=== PATIENT | female | born 1965 | race African-American/Black ===

== ENCOUNTER 2016-03-09 12:34 | Observation (INO) | payer SELFPAY ==
--- NOTE | 2016-03-09 12:53 | ER Document Report ---
ED Medical Screen (RME) - General Chief Complaint: Chest Pain > 30 Stated Complaint: CHEST PAIN Notes: This is a 50-year-old female presents emergency Department with tearing back pain which radiates to the front of her abdomen, onset was last evening. Also admits to dull constant ache in her chest. Patient is a history of cardiac disease htn, abdominal pain I have greeted and performed a rapid initial assessment of this patient. A comprehensive ED assessment and evaluation of the patient, analysis of test results and completion of the medical decision making process will be conducted by additional ED providers. TRAVEL OUTSIDE OF THE [place] IN LAST 30 DAYS: No - Related Data Allergies/Adverse Reactions: NSAIDS (Non-Steroidal Anti-Inflamma [Nsaids] Allergy (Intermediate, Verified 12:48) Hives aspirin [Aspirin] Allergy (Unknown, Verified 03/09/16 12:48) Past Medical History - Past Medical History Cardiac Medical History: Reports: Hx Hypertension Denies: Hx Heart Murmur Pulmonary Medical History: Denies: Hx Tuberculosis Musculoskeltal Medical History: Reports Hx Arthritis - RA Past Surgical History: Reports: Hx Vascular Surgery - Immunizations Hx Diphtheria, Pertussis, Tetanus Vaccination: Yes - 2006
[2016-03-09] MEDS ORDERED: NORMAL SALINE 1000 ML 1,000 ML IV PRN ×2 (13:29→20:32)
[2016-03-09] MEDS ORDERED: ONDANSETRON HCL INJ/PF 4 MG/2 ML SDV IV ONE (13:30)
[2016-03-09] MEDS ORDERED: HYDROMORPHONE HCL INJ/PF 2 MG/ML AMPULE IV ONE ×3 (13:30→20:32)
[2016-03-09 13:33] LABS: ABSOLUTE BASOPHILS # (AUTO) 0.1 10^3/uL (0.0-0.2); ABSOLUTE LYMPHOCYTES (AUTO) 1.6 10^3/uL (0.5-4.7); ABSOLUTE MONOCYTES (AUTO) 0.9 10^3/uL (0.1-1.4); ABSOLUTE NEUT (AUTO) 12.2 10^3/uL (1.7-8.2); BASOPHILS % (AUTO) 0.5 % (0-2); EOSINOPHILS % (AUTO) 0.1 % (0-6); HEMATOCRIT 40.4 % (36.0-47.0); HGB HCT DIFFERENCE -1.4; LYMPHOCYTES % (AUTO) 10.7 % (13-45); MEAN CORPUSCULAR HEMOGLOBIN 28.7 pg (27.0-33.4); MEAN CORPUSCULAR HGB CONC 32.3 g/dL (32.0-36.0); MEAN CORPUSCULAR VOLUME 89 fl (80-97); MONOCYTES % (AUTO) 5.8 % (3-13); RED BLOOD COUNT 4.55 10^6/uL (3.72-5.28); RED CELL DISTRIBUTION WIDTH 13.3 % (11.5-14.0); SEGMENTED NEUTROPHILS % (AUTO) 82.9 % (42-78); WHITE BLOOD COUNT 14.7 10^3/uL (4.0-10.5)
[2016-03-09 13:36] LABS: PROTHROMBIN TIME 12.8 SEC (11.4-15.4)
[2016-03-09 13:37] LABS: PARTIAL THROMBOPLASTIN TIME 31.6 SEC (23.5-35.8)
[2016-03-09] MEDS ORDERED: LABETALOL HCL INJ 20 MG/4 ML DISP.SYRIN IV ONE ×5 (13:44→20:02)
--- NOTE | 2016-03-09 13:44 | ER Document Report ---
ED General - General Chief Complaint: Abdominal Pain >50 Stated Complaint: CHEST PAIN Time seen by provider: 13:41 Mode of Arrival: Wheelchair Information source: Patient Notes: This is a 50-year-old female with a history of hypertension, peripheral vascular disease (right tibial bypass). Patient presents to the emergency room with lower abdominal pain since last night. Patient's blood pressure medicine was noted to be elevated in triage (202/168) patient did state she took her blood pressure medicines prior to arrival. In the room, blood pressure is 184/ 134. Patient's last period was one year ago. She denies any vaginal bleeding, denies vaginal discharge. The patient denies constipation or diarrhea. TRAVEL OUTSIDE OF THE [place] IN LAST 30 DAYS: No - HPI Onset: Yesterday Onset/Duration: Gradual Quality of pain: Dull Severity: Moderate Pain Level: 2 Associated symptoms: denies: Chills, Nonproductive cough, Productive cough, Fever, Nausea, Shortness of breath Exacerbated by: Denies Relieved by: Denies Similar symptoms previously: No Recently seen / treated by doctor: No - Related Data Allergies/Adverse Reactions: NSAIDS (Non-Steroidal Anti-Inflamma [Nsaids] Allergy (Intermediate, Verified 12:48) Hives aspirin [Aspirin] Allergy (Unknown, Verified 03/09/16 12:48) Past Medical History - General Information source: Patient - Social History Smoking Status: Current Every Day Smoker Cigarette use (# per day): No Chew tobacco use (# tins/day): No Frequency of alcohol use: None Drug Abuse: None Lives with: Family Family History: Reviewed & Not Pertinent Patient has suicidal ideation: No Patient has homicidal ideation: No - Past Medical History Cardiac Medical History: Reports: Hx Hypertension Denies: Hx Heart Murmur Pulmonary Medical History: Denies: Hx Tuberculosis Renal/ Medical History: Denies: Hx Peritoneal Dialysis Musculoskeltal Medical History: Reports Hx Arthritis - RA Past Surgical History: Reports: Hx Vascular Surgery - Immunizations Hx Diphtheria, Pertussis, Tetanus Vaccination: Yes - 2006 Review of Systems - Review of Systems Constitutional: denies: Chills, Fever EENT: No symptoms reported Cardiovascular: See HPI Respiratory: No symptoms reported Gastrointestinal: See HPI Genitourinary: No symptoms reported Female Genitourinary: No symptoms reported Musculoskeletal: No symptoms reported Skin: No symptoms reported Hematologic/Lymphatic: No symptoms reported Neurological/Psychological: No symptoms reported Physical Exam - Vital signs Vitals: Temp Pulse Resp BP Pulse Ox 98.6 F 102 H 22 H 182/113 H 99 03/09/16 12:49 03/09/16 12:49 03/09/16 12:49 03/09/16 12:49 03/09/16 12:49 Notes: Physical exam: GENERAL: 50-year-old female, alert and oriented 3, appears in moderate distress HEAD: Atraumatic, normocephalic. EYES: Pupils equal round and reactive to light, extraocular movements intact, sclera anicteric, conjunctiva are normal. ENT: TMs normal, nares patent, oropharynx clear without exudates. Moist mucous membranes. NECK: Normal range of motion, supple without lymphadenopathy or JVD. LUNGS: Breath sounds clear to auscultation bilaterally and equal. No wheezes rales or rhonchi. HEART: Regular rate and rhythm without murmurs, rubs or gallops. ABDOMEN: Soft, tenderness in the lower quadrants, normoactive bowel sounds. No guarding, no rebound. No masses appreciated. Pelvic exam: External genitalia normal, patient does have a whitish discharge in the vault. There is some tenderness to the uterus. No significant cervical motion tenderness. Specimen sent to lab. EXTREMITIES: Patient does have evidence of left groin vascular surgery and left tibial artery surgery. The pulses to the left foot are good. Patient does have a dopplerable pulse in the right groin. While there is decreased pulses to the right lower extremity, her foot remains warm and the cap refill is good. She does not have any pain to the tenderness of the lower extremity or any pain with range of motion of the right lower extremity. Sensation is normal to the lower extremity. NEUROLOGICAL: Cranial nerves II through XII grossly intact. Normal speech, moving all extremities. PSYCH: Normal mood, normal affect. SKIN: Warm, Dry, normal turgor, no rashes or lesions noted. Course - Re-evaluation Re-evalutation: 03/09/16 19:32 Note: This is a 50-year-old female with a history of poorly controlled hypertension, peripheral vascular disease (left lower extremity). The patient initially presented with lower abdominal discomfort in the setting of uncontrolled hypertension (blood pressure 202/168). On physical exam, the patient did have lower abdominal tenderness, tenderness to the right inguinal area. Her blood pressure was controlled with IV labetalol. She was given some pain medicine. CTA of the chest showed no aortic dilatation or dissection. CT of the abdomen reveals a right common iliac artery that is occluded they note that there is flow to the distal external iliac. CT does not show any disease of the celiac her SMA. On physical exam, The foot is warm. There is some capillary Refill.The patient does have a dopplerable pulse in the right groin. The patient does have a good dorsal pedal pulse on the left side where she has had surgery in the past. 03/09/16 20:03 I discussed case with Dr. Ponce (vascular at [facility]) who is covering for Dr. Florez. Given the presentation, Dr. Ponce does not feel there is an acute vascular emergency. He does recommend that the patient follow up with Dr. Florez Clive his or himself) in their offices. The patient's predominant symptoms with lower abdominal discomfort in the setting of uncontrolled hypertension. On physical exam, she has no sensory loss in the right lower extremity and has no pain with range of motion of the right leg. These findings go against acute arterial ischemia of the right leg. She no doubt has disease and will need some sort of vascular follow-up with one of the doctors above. 03/09/16 20:04 03/09/16 20:07 03/09/16 20:36 - Vital Signs Vital signs: Temp Pulse Resp BP Pulse Ox 98.6 F 102 H 19 160/93 H 100 03/09/16 12:49 03/09/16 12:49 03/09/16 18:31 03/09/16 18:31 03/09/16 18:31 03/09/16 20:36 - Laboratory Result Diagrams: 03/09/16 13:05 03/09/16 13:05 Laboratory results interpreted by me: 03/09/16 13:05 WBC 14.7 H Seg Neutrophils % 82.9 H Lymphocytes % 10.7 L Absolute Neutrophils 12.2 H - Diagnostic Test Radiology reviewed: Image reviewed, Reports reviewed - CT of the chest shows no aortic dissection or dilatation. CT of the abdomen shows a normal appendix without any obvious inflammation. The patient has occlusion of the right iliac artery. There is flow to the distal external iliac . The SMA and celiac access showed no significant disease. - EKG Interpretation by Mi Rate: Normal Rhythm: NSR - EKG shows normal sinus rhythm with a ventricular rate of 93 with evidence of LVH. Critical Care Note - Critical Care Note Total time excluding time spent on procedures (mins): 75 Discharge - Discharge Clinical Impression: hypertensive emergency Condition: Stable Disposition: ADMITTED OBSERVATION Admitting Provider: Hospitalist - Dr. Mueller Unit Admitted: [facility]
[2016-03-09 13:46] LABS: ALANINE AMINOTRANSFERASE 25 U/L (9-52); ALBUMIN 3.9 g/dL (3.5-5.0); ALKALINE PHOSPHATASE 111 U/L (38-126); ANION GAP 12 (5-19); ASPARTATE AMINO TRANSFERASE 14 U/L (14-36); BILIRUBIN,TOTAL 0.8 mg/dL (0.2-1.3); BLOOD UREA NITROGEN 11 mg/dL (7-20); CALCIUM 10.2 mg/dL (8.4-10.2); CARBON DIOXIDE 28 mmol/L (22-30); CHLORIDE 102 mmol/L (98-107); CREATINE KINASE 38 U/L (30-135); CREATININE RESULT 0.87 mg/dL (0.52-1.25); GLUCOSE 94 mg/dL (75-110); LIPASE 36.3 U/L (23-300); POTASSIUM 3.8 mmol/L (3.6-5.0); TOTAL PROTEIN 8.2 g/dL (6.3-8.2)
[2016-03-09 13:59] LABS: CREATINE KINASE MB < 0.22 ng/mL (<4.55); TROPONIN I < 0.012 ng/mL
[2016-03-09 14:55] LABS: APPEARANCE,URINE CLEAR; BILIRUBIN,URINE NEGATIVE (NEGATIVE); GLUCOSE, URINE NEGATIVE (NEGATIVE); KETONES,URINE NEGATIVE (NEGATIVE); LEUKOCYTE ESTERASE,URINE NEGATIVE (NEGATIVE); NITRITE,URINE NEGATIVE (NEGATIVE); PROTEIN,URINE NEGATIVE (NEGATIVE); UROBILINOGEN,URINE NEGATIVE mg/dL (<2.0)
[2016-03-09] MEDS ORDERED: CEFTRIAXONE 1 GM/D5W RTU 50 ML IV ONE (17:38)
[2016-03-09] MEDS ORDERED: NITROGLYCERIN 2% OINTMENT 1 GM PACKET TP ONE (19:33)
[2016-03-09 20:36] LABS: CHLAM PCR NOT DETECTED (NOT DETECT)
[2016-03-09 21:19] LABS: URINE BARBITURATES SCREEN NEGATIVE; URINE METHADONE SCREEN NEGATIVE; URINE OPIATES LOW NEGATIVE; URINE PHENCYCLIDINE SCREEN NEGATIVE
[2016-03-09] MEDS ORDERED: THIAMINE HCL 100 MG TABLET PO ONE (21:58)
[2016-03-09] MEDS ORDERED: PROMETHAZINE HCL INJ 25 MG/1 ML VIAL IV PRN (22:17)
[2016-03-09] MEDS ORDERED: NICOTINE 7 MG/24 HR PATCH.TD24 TD PRN (22:39)
--- NOTE | 2016-03-09 22:39 | PDOC H&P ---
History of Present Illness Admission Date/PCP: No PCP Patient complains of: abd pain, chest pain History of Present Illness: DIMAS GRAHAM is a 50 year old Hungarian female with known underlying difficult to control blood pressure, chronic noncompliance with medications, known peripheral vascular disease, having undergone a left lower extremity bypass, who presents to the emergency room for evaluation of above complaints. Has had intermittent mild to moderate intensity aching lower abdominal pain for the last 24 hours. Nausea but no vomiting. No fever chills, diarrhea or dysuria. Last bowel movement was 24 hours ago. Intermittent occasional chest pain, but the abdominal pain has been a bigger complaint. Has been rather hypertensive since coming to the emergency room, requiring several doses of labetalol. States she should be on 3 different blood pressure medicines, but is only taking a lisinopril hydrochlorothiazide combination. Has been on only this one medication for the past several months Patient has been discussed with emergency room physician who evaluated the patient. . Currently resting quietly, chest pain-free, with only minimal lower abdominal discomfort. Laboratory results are listed in [facility] and are reviewed. X-ray summary results are listed below, with full report(s) reviewed. . EKG reviewed. And compared to a tracing from 02/26/2014. Repeat EKG reviewed. Social history/personal habits: 4 children. Works a "seasonal job" at the [employer]. Quarter pack of cigarettes per day. 3 beers a day. Denies illicit drug use. Allergies/adverse reactions single. Allergies are as listed in chart and are noted and reviewed with patient. Home medications Home medications initially autopopulated into [facility] [employer] may not accurately reflect patient's true medications, dosages, and/or frequencies. Unfortunately, patient uncertain of medications/dosages/frequencies. Order has been entered for staff to contact family, outpatient physician, and/or pharmacy to more accurately determine medications, dosages, and frequencies and to contact physician when that has been accomplished. REVIEW OF SYSTEMS: Constitutional: No fever or chills. Eyes: No current vision complaints. ENT: No swallowing problems or complaints. No hearing problems or complaints. Pulmonary: No current complaints. Cardiovascular: See history and present illness. Gastrointestinal: See history and present illness. Skin: No current complaints, including rashes. Hematologic: Easy bruising. Neurologic: Chronic numbness and tingling of her left foot since her prior vascular bypass. Musculoskeletal: Joint pain from arthritis. Psychiatric: Anxiety depression; denies suicidal or homicidal ideation. Endocrine: No current complaints, including polyuria. Genitourinary: No current complaints, including dysuria. PHYSICAL EXAMINATION: 5 feet 2 inches tall. 58.97 kg. BMI 23.8 kg/m. Blood pressure 179/99. Pulse 82 and regular. 97% saturation on room air. Respirations are 13 and unlabored. Temperature 98.6. Son and [id number] are present, along with toddler grandson. Patient approves. Female emergency room ward maid Hollie is present. Well-nourished well-developed though somewhat chronically ill-appearing - [place] female appearing a bit older than her stated age. Appears to feel a bit under the weather, so to speak. Otherwise, cooperative and in no obvious distress other than perhaps mildly anxious. No agitation. Skin is warm and dry. No grossly obvious evidence of rash in areas of skin examined. No subcutaneous nodules palpated. ENT: Hearing grossly normal to normal conversation. Tongue midline on protrusion pink and slightly tacky. Eyes: No scleral icterus. Pupils equal and reactive to light at 4 mm. [place] conjunctivae. Neck is supple and nontender to gentle active range of motion and palpation. Midline trachea. No palpable thyroid nodule mass enlargement or tenderness. Lymphatic: No palpable cervical or clavicular nodes. Neck and lymphatic exams limited by patient body habitus. Psychiatric: Fair to reasonable insight into acute and chronic medical issues. Oriented to time location and why here. Lungs: Auscultation reveals clear and equal breath sounds bilaterally. No use of accessory respiratory muscles. Cardiovascular: Heart regular rate and rhythm, without gallop murmur or rub. No carotid or abdominal aortic bruits. No ankle or pedal edema. Faintly palpable dorsalis pedis pulses. Abdomen: soft, , slightly distended nontender, other than scant lower abdominal discomfort to palpation, without evidence of guarding or peritoneal signs, with positive bowel sounds. Unable to adequately evaluate abdomen for masses or organomegaly due to distention. Extremities: Feet are warm and dry. No calf tenderness to compression. No grossly obvious visual evidence of calf swelling. Gentle manipulation of lower extremities fails to reveal any obvious evidence of injury or instability to knees hips or ankles. Neurologic: Moves upper extremities grossly normally. Patellar reflexes absent. Absent Babinski. Light touch is intact at feet. Dorsiflexion and plantarflexion of feet 5 / 5 and symmetric. Past Medical History Cardiac Medical History: Reports: Hypertension Denies: Congestive Heart Failure, DVT, Myocardial Infarction, Hyperlipidema, Heart Murmur Pulmonary Medical History: Denies: Asthma, Chronic Obstructive Pulmonary Disease (COPD), Tuberculosis EENT Medical History: Denies: Eyes, Ears, Throat Neurological Medical History: Reports: Ischemic CVA - History of stroke 18 years of age. Denies: Hemorrhagic CVA, Seizures Endocrine Medical History: Denies: Diabetes Mellitus Type 1, Diabetes Mellitus Type 2, Hyperthyroidism, Hypothyroidism Renal/ Medical History: Reports: None GI Medical History: Denies: Cirrhosis, Gastroesophageal Reflux Disease, Hepatitis, Peptic Ulcer Disease Musculoskeltal Medical History: Reports: Arthritis - RA Skin Medical History: Reports: None Denies: Eczema, Psoriasis Psychiatric Medical History: Reports: Alcohol Dependency, Depression, General Anxiety Disorder, Tobacco Dependency Denies: Substance Abuse Hematology: Reports: Other - Easy bruising Infectious Medical History: Denies: Hepatitis B, Hepatitis C Past Surgical History Past Surgical History: Reports: Cardiac Catheterization, Vascular Surgery - Left lower extremity bypass. Denies: Amputation Social History Information Source: Patient, Emergency Med Personnel, [facility] Records Lives with: Family Smoking Status: Current Every Day Smoker Frequency of Alcohol Use: Heavy - 3 beers a day. Hx Recreational Drug Use: No Hx Prescription Drug Abuse: No - Advance Directive Resuscitation Status: Full Code Surrogate healthcare decision maker:: Her children Family History Family History: Reviewed & Not Pertinent Parental Family History Reviewed: Yes Children Family History Reviewed: Yes Sibling(s) Family History Reviewed.: Yes Medication/Allergy Home Medications: RX: Gabapentin 600 mg PO TID PRN 03/09/16 RX: Acetaminophen [Tylenol 325 mg Tablet] 650 mg PO Q4HP PRN tablet 03/11/16 RX: Amlodipine Besylate [Norvasc 10 mg Tablet] 10 mg PO DAILY tablet 03/11/16 RX: Hydrocodone/Acetaminophen [Blakeslee 5-325 mg Tablet] 1 tab PO Q4HP PRN #20 tablet 03/11/16 RX: Lisinopril/Hydrochlorothiazide [Lisinopril-Hctz 20-12.5 mg Tab] 20 mg PO DAILY #30 tablet 03/11/16 Allergies/Adverse Reactions: NSAIDS (Non-Steroidal Anti-Inflamma [Nsaids] Allergy (Intermediate, Verified 04/24 09:52) Hives aspirin [Aspirin] Allergy (Unknown, Verified 03/13/16 09:52) Physical Exam Vital Signs: Temp Pulse Resp BP Pulse Ox 98.6 F 102 H 19 160/93 H 100 03/09/16 12:49 03/09/16 12:49 03/09/16 18:31 03/09/16 18:31 03/09/16 18:31 Intake & Output 03/08/16 03/09/16 03/10/16 00:59 00:59 00:59 Weight 58.967 kg Results Laboratory Results: 03/09/16 13:05 03/09/16 13:05 03/09/16 03/09/16 03/09/16 13:05 13:05 13:05 WBC 14.7 H RBC 4.55 Hgb 13.0 Hct 40.4 MCV 89 MCH 28.7 MCHC 32.3 RDW 13.3 Plt Count 313 Seg Neutrophils % 82.9 H Lymphocytes % 10.7 L Monocytes % 5.8 Eosinophils % 0.1 Basophils % 0.5 Absolute Neutrophils 12.2 H Absolute Lymphocytes 1.6 Absolute Monocytes 0.9 Absolute Eosinophils 0.0 Absolute Basophils 0.1 Sodium 142.0 Potassium 3.8 Chloride 102 Carbon Dioxide 28 Anion Gap 12 BUN 11 Creatinine 0.87 Est GFR ( Amer) > 60 Est GFR (Non-Af Amer) > 60 Glucose 94 Calcium 10.2 Total Bilirubin 0.8 AST 14 ALT 25 Alkaline Phosphatase 111 Total Protein 8.2 Albumin 3.9 Lipase 36.3 Serum HCG, Qual NEGATIVE Urine Color Urine Appearance Urine pH Ur Specific Gary Urine Protein Urine Glucose (UA) Urine Ketones Urine Blood Urine Nitrite Ur Leukocyte Esterase Urine WBC (Auto) Urine RBC (Auto) 03/09/16 14:25 WBC RBC Hgb Hct MCV MCH MCHC RDW Plt Count Seg Neutrophils % Lymphocytes % Monocytes % Eosinophils % Basophils % Absolute Neutrophils Absolute Lymphocytes Absolute Monocytes Absolute Eosinophils Absolute Basophils Sodium Potassium Chloride Carbon Dioxide Anion Gap BUN Creatinine Est GFR ( Amer) Est GFR (Non-Af Amer) Glucose Calcium Total Bilirubin AST ALT Alkaline Phosphatase Total Protein Albumin Lipase Serum HCG, Qual Urine Color YELLOW Urine Appearance CLEAR Urine pH 6.0 Ur Specific Gary 1.010 Urine Protein NEGATIVE Urine Glucose (UA) NEGATIVE Urine Ketones NEGATIVE Urine Blood NEGATIVE Urine Nitrite NEGATIVE Ur Leukocyte Esterase NEGATIVE Urine WBC (Auto) 1 Urine RBC (Auto) 0 03/09/16 03/09/16 13:05 13:05 Creatine Kinase 38 CK-MB (CK-2) < 0.22 Troponin I < 0.012 Impressions: Chest X-Ray 03/09/16 13:30 IMPRESSION: NO SIGNIFICANT RADIOGRAPHIC FINDING IN THE CHEST. Abdomen/Pelvis CT 03/09/16 15:38 IMPRESSION: Largely occluded right common external iliac artery with some flow evident in the distal common iliac. High-grade stenosis left common iliac. Chest/Abdomen CTA 03/09/16 15:38 IMPRESSION: No evidence of pulmonary emboli. Transvaginal US 03/09/16 17:37 IMPRESSION: MILD TO MODERATE FREE FLUID IN THE POSTERIOR CUL-DE-SAC. ETIOLOGY AND SIGNIFICANCE NOT APPARENT. UNABLE TO VISUALIZE THE OVARIES. NO OTHER SIGNIFICANT FINDINGS. Assessment & Plan - Diagnosis (1) Abnormal EKG Plan: Repeat EKG. (2) Chest pain Qualifiers: Chest pain type: unspecified Qualified Code(s): R07.9 - Chest pain, unspecified Is this a current diagnosis for this admission?: YesPlan: Possibly secondary to elevated blood pressure. Chest pain-free at present. Clinical suspicion for acute coronary syndrome is low. However,Patient will be admitted under chest pain protocol. Serial troponin's . Repeat EKG. lipid panel. I have strongly encouraged patient not to get out of bed without notifying staff , to avoid a fall with injury. Knee high SCDs for DVT prophylaxis, along with subcutaneous Lovenox. Impression and plans were discussed with patient, and family, all of whom concur. Time spent in evaluation and management of patient: 74 minutes. (3) Hypertensive urgency Is this a current diagnosis for this admission?: YesPlan: Gradual blood pressure control. Vital sign parameters are on chart.Resume home medications as appropriate once these have been determined and reviewed. (4) Lower abdominal pain Is this a current diagnosis for this admission?: YesPlan: Unlikely serious etiology. Please see emergency room physician notes concerning his discussion with vascular surgeon at [facility]. When necessary pain medication. Clear liquid diet. (5) Alcohol dependency Qualifiers: Substance use status: uncomplicated Qualified Code(s): F10.20 - Alcohol dependence, uncomplicated Is this a current diagnosis for this admission?: YesPlan: No evidence of withdrawal symptoms. Scheduled thiamine, folic acid, and multivitamin. Observe closely for withdrawal symptoms. (6) Noncompliance Is this a current diagnosis for this admission?: Yes (7) Peripheral arterial disease Is this a current diagnosis for this admission?: YesPlan: Please see emergency room physician notes concerning his discussion with vascular surgeon at [facility]. Outpatient follow-up. (8) Tobacco dependency Is this a current diagnosis for this admission?: YesPlan: When necessary nicotine patch. - Inpatient Certification Based on my medical assessment, after consideration of the patient's comorbidities, presenting symptoms, or acuity I expect that the services needed warrant INPATIENT care.: Yes I certify that my determination is in accordance with my understanding of Medicare's requirements for reasonable and necessary INPATIENT services [42 CFR 412.3e].: Yes Medical Necessity: Need Close Monitoring Due to Risk of Patient Decompensation, Need For Continuous Telemetry Monitoring, Need for Pain Control, Risk of Complication if Not Cared For in Hospital Post Hospital Care: D/C or Transfer Summary
--- NOTE | 2016-03-10 00:03 | EKG REPORT ---
SEVERITY:- ABNORMAL ECG - SINUS RHYTHM PROBABLE LEFT ATRIAL ABNORMALITY LEFT VENTRICULAR HYPERTROPHY ANTERIOR INFARCT, AGE INDETERMINATE : Confirmed by: Dede Danielle 10-Mar-2016 00:02:51
[2016-03-10] MEDS: ACETAMINOPHEN 325 MG TABLET PO PRN ×2 (03:25→19:41)
[2016-03-10] MEDS: LANSOPRAZOLE 30 MG TAB.RAP.DR PO SCH ×2 (05:26→17:42)
[2016-03-10 05:34] LABS: ABSOLUTE BASOPHILS # (AUTO) 0.1 10^3/uL (0.0-0.2); ABSOLUTE LYMPHOCYTES (AUTO) 1.5 10^3/uL (0.5-4.7); ABSOLUTE NEUT (AUTO) 11.2 10^3/uL (1.7-8.2); BASOPHILS % (AUTO) 0.8 % (0-2); EOSINOPHILS % (AUTO) 0.2 % (0-6); HEMATOCRIT 33.5 % (36.0-47.0); HGB HCT DIFFERENCE -1.4; LYMPHOCYTES % (AUTO) 10.9 % (13-45); MEAN CORPUSCULAR HEMOGLOBIN 28.4 pg (27.0-33.4); MEAN CORPUSCULAR VOLUME 89 fl (80-97); MONOCYTES % (AUTO) 7.2 % (3-13); RED BLOOD COUNT 3.77 10^6/uL (3.72-5.28); RED CELL DISTRIBUTION WIDTH 13.3 % (11.5-14.0); SEGMENTED NEUTROPHILS % (AUTO) 80.9 % (42-78); WHITE BLOOD COUNT 13.8 10^3/uL (4.0-10.5)
[2016-03-10 05:37] LABS: HEMOGLOBIN 10.7 g/dL (12.0-15.5)
[2016-03-10 05:41] LABS: CHOLESTEROL 171.91 mg/dL (0-200); Direct HDL 49 mg/dL (>40); TRIGLYCERIDES 128 mg/dL (<150)
[2016-03-10 05:52] LABS: DIRECT LDL 79 mg/dL (<100)
[2016-03-10] MEDS: FOLIC ACID 1 MG TABLET PO SCH (09:53)
[2016-03-10] MEDS: MULTIVITAMIN TABLET PO SCH (09:53)
[2016-03-10] MEDS: LISINOPRIL 10 MG TABLET PO SCH (09:54)
[2016-03-10] MEDS: HYDROCHLOROTHIAZIDE 25 MG TABLET PO SCH (09:55)
[2016-03-10] MEDS: ENOXAPARIN SODIUM INJ 40 MG/0.4 ML DISP.SYRIN SUBCUT SCH (09:55)
[2016-03-10] MEDS: THIAMINE HCL 100 MG TABLET PO SCH (09:55)
[2016-03-10] MEDS: AMLODIPINE BESYLATE 10 MG TABLET PO SCH (09:57)
[2016-03-10] MEDS: HYDROCODONE/ACETAMINOPHEN 5-325 MG TABLET PO PRN ×3 (10:02→22:18)
--- NOTE | 2016-03-10 10:59 | EKG REPORT ---
SEVERITY:- ABNORMAL ECG - SINUS RHYTHM PROBABLE LEFT ATRIAL ABNORMALITY ANTERIOR INFARCT, AGE INDETERMINATE : Confirmed by: Dede Danielle 10-Mar-2016 10:58:54
--- NOTE | 2016-03-10 11:00 | EKG REPORT ---
SEVERITY:- ABNORMAL ECG - SINUS RHYTHM PROBABLE LEFT ATRIAL ABNORMALITY LVH WITH SECONDARY REPOLARIZATION ABNORMALITY ANTERIOR INFARCT, AGE INDETERMINATE : Confirmed by: Dede Danielle 10-Mar-2016 10:59:05
[2016-03-10] MEDS: GABAPENTIN 300 MG CAPSULE PO SCH ×2 (14:10→22:19)
[2016-03-10] MEDS ORDERED: INFLUENZA ADLT QUAD (36MOS+) 2016-17 VAC 0.5 ML SYR IM PRN (14:23)
--- NOTE | 2016-03-10 15:30 | PDOC PROGRESS REPORT ---
Subjective Progress Note for:: 03/10/16 Subjective:: Patient seen on morning rounds. She is presently resting in bed. She states she is hungry and complaining of pain in right foot. She does have history of PVD. She did have CTA of abdomen and pelvis with results discussed with her vascular surgeon last evening by ED MD. They feel she will need outpatient follow up. This is not an acute finding. She denies chest pain, shortness of breath or dyspnea. She denies nausea, vomiting or abdominal pain. Physical Exam Vital Signs: Temp Pulse Resp BP Pulse Ox 98.6 F 67 12 131/67 H 97 03/10/16 11:34 03/10/16 11:34 03/10/16 11:34 03/10/16 11:34 03/10/16 11:34 Intake & Output 03/09/16 03/10/16 03/11/16 06:59 06:59 06:59 Intake Total 185 355 Balance 185 355 General appearance: PRESENT: no acute distress, well-developed, well-nourished Head exam: PRESENT: atraumatic, normocephalic Eye exam: PRESENT: conjunctiva pink, EOMI, PERRLA. ABSENT: scleral icterus Ear exam: PRESENT: normal external ear exam Mouth exam: PRESENT: moist, tongue midline Neck exam: ABSENT: carotid bruit, JVD, lymphadenopathy, thyromegaly Respiratory exam: PRESENT: clear to auscultation alka. ABSENT: rales, rhonchi, wheezes Cardiovascular exam: PRESENT: RRR. ABSENT: diastolic murmur, rubs, systolic murmur Pulses: PRESENT: normal dorsalis pedis pul Vascular exam: PRESENT: normal capillary refill GI/Abdominal exam: PRESENT: normal bowel sounds, soft. ABSENT: distended, guarding, mass, organolmegaly, rebound, tenderness Rectal exam: PRESENT: deferred Extremities exam: PRESENT: calf tenderness - right lower extremity Musculoskeletal exam: PRESENT: ambulatory, full ROM, normal inspection, tenderness - right foot, foot is warm to the touch with good capillary refill Neurological exam: PRESENT: alert, awake, oriented to person, oriented to place , oriented to time, oriented to situation, CN II-XII grossly intact. ABSENT: motor sensory deficit Skin exam: PRESENT: dry, intact, warm. ABSENT: cyanosis, rash Results Laboratory Results: 03/10/16 05:08 03/09/16 03/10/16 03/10/16 22:50 05:08 05:08 WBC 13.8 H RBC 3.77 Hgb 10.7 L D Hct 33.5 L MCV 89 MCH 28.4 MCHC 32.0 RDW 13.3 Plt Count 237 Seg Neutrophils % 80.9 H Lymphocytes % 10.9 L Monocytes % 7.2 Eosinophils % 0.2 Basophils % 0.8 Absolute Neutrophils 11.2 H Absolute Lymphocytes 1.5 Absolute Monocytes 1.0 Absolute Eosinophils 0.0 Absolute Basophils 0.1 Magnesium 1.7 Triglycerides 128 Cholesterol 171.91 LDL Cholesterol Direct 79 VLDL Cholesterol 26.0 HDL Cholesterol 49 03/09/16 03/10/16 22:50 05:08 Troponin I 0.016 0.013 Impressions: Chest X-Ray 03/09/16 13:30 IMPRESSION: NO SIGNIFICANT RADIOGRAPHIC FINDING IN THE CHEST. Abdomen/Pelvis CT 03/09/16 15:38 IMPRESSION: Largely occluded right common external iliac artery with some flow evident in the distal common iliac. High-grade stenosis left common iliac. Chest/Abdomen CTA 03/09/16 15:38 IMPRESSION: No evidence of pulmonary emboli. Transvaginal US 03/09/16 17:37 IMPRESSION: MILD TO MODERATE FREE FLUID IN THE POSTERIOR CUL-DE-SAC. ETIOLOGY AND SIGNIFICANCE NOT APPARENT. UNABLE TO VISUALIZE THE OVARIES. NO OTHER SIGNIFICANT FINDINGS. Assessment & Plan - Diagnosis (1) Chest pain Qualifiers: Chest pain type: unspecified Qualified Code(s): R07.9 - Chest pain, unspecified Is this a current diagnosis for this admission?: YesPlan: Serial troponins have been negative (2) Hypertensive urgency Is this a current diagnosis for this admission?: YesPlan: Improved on current medications. History of noncompliance with current medications (3) Peripheral arterial disease Is this a current diagnosis for this admission?: YesPlan: Patient has known PAD (4) Foot pain, right Is this a current diagnosis for this admission?: YesPlan: Patient with known PAD, foot is warm with positive pulses. Discussed with her vascular surgeon in [place] last evening. They will follow post discharge. Restart Gabapentin and hydrocodone (5) Noncompliance Is this a current diagnosis for this admission?: YesPlan: Patient has been counseled (6) Tobacco dependency Is this a current diagnosis for this admission?: YesPlan: Counseled on need to quit (7) Alcohol dependency Qualifiers: Substance use status: uncomplicated Qualified Code(s): F10.20 - Alcohol dependence, uncomplicated Is this a current diagnosis for this admission?: Yes - Time Time Spent with patient: 25-34 minutes Critical Time spent with patient: 25-34 minutes Smoking Cessation Education: 3 to 10 minutes Medications reviewed and adjusted accordingly: Yes Anticipated discharge: Home
[2016-03-11] MEDS: GABAPENTIN 300 MG CAPSULE PO SCH (05:46)
[2016-03-11] MEDS: HYDROCODONE/ACETAMINOPHEN 5-325 MG TABLET PO PRN (05:46)
[2016-03-11] MEDS: LANSOPRAZOLE 30 MG TAB.RAP.DR PO SCH (05:46)
[2016-03-11] MEDS: ENOXAPARIN SODIUM INJ 40 MG/0.4 ML DISP.SYRIN SUBCUT SCH (10:26)
[2016-03-11] MEDS: MULTIVITAMIN TABLET PO SCH (10:27)
[2016-03-11] MEDS: LISINOPRIL 10 MG TABLET PO SCH (10:27)
[2016-03-11] MEDS: AMLODIPINE BESYLATE 10 MG TABLET PO SCH (10:27)
[2016-03-11] MEDS: FOLIC ACID 1 MG TABLET PO SCH (10:27)
[2016-03-11] MEDS: HYDROCHLOROTHIAZIDE 25 MG TABLET PO SCH (10:28)
[2016-03-11] MEDS: THIAMINE HCL 100 MG TABLET PO SCH (10:28)
[2016-03-11 11:42] VITALS: BP 141/82
--- NOTE | 2016-03-13 11:20 | PDOC DISCHARGE SUMMARY ---
General - Admit/Disc Date/PCP Admission Date/Primary Care Provider: 03/09/16 22:01 Discharge Date: 03/11/16 - Discharge Diagnosis (1) Chest pain Is this a current diagnosis for this admission?: YesSummary: Ruled out for acute coronary syndrome, most likely GERD related (2) Hypertensive urgency Is this a current diagnosis for this admission?: YesSummary: Patient had not been taking any of her antihypertensives (3) Peripheral arterial disease Is this a current diagnosis for this admission?: YesSummary: Patient has a history of PAD, noncompliance with medical therapy, continued tobacco abuse. She has had bypass surgery to left leg. She will follow up regarding right lower extremity PAD with her vascular surgeon Dr Florez in [place] (4) Foot pain, right Is this a current diagnosis for this admission?: YesSummary: Short term vicodin, continue gabapentin (5) Noncompliance Is this a current diagnosis for this admission?: YesSummary: Counseled (6) Tobacco dependency Is this a current diagnosis for this admission?: YesSummary: Counseled (7) Alcohol dependency Is this a current diagnosis for this admission?: YesSummary: Counseled - Additional Information Resuscitation Status: Full Code Discharge Activity: Activity As Tolerated, Balance Activity w/Rest Home Medications: Gabapentin 600 mg PO TID PRN 03/09/16 Acetaminophen [Tylenol 325 mg Tablet] 650 mg PO Q4HP PRN tablet 03/11/16 Amlodipine Besylate [Norvasc 10 mg Tablet] 10 mg PO DAILY tablet 03/11/16 Hydrocodone/Acetaminophen [Coram 5-325 mg Tablet] 1 tab PO Q4HP PRN #20 tablet 03/11/16 Lisinopril/Hydrochlorothiazide [Lisinopril-Hctz 20-12.5 mg Tab] 20 mg PO DAILY # 30 tablet 03/11/16 History of Present Illness Patient complains of: Chest pain, abdominal pain and right foot pain History of Present Illness: DIMAS GRAHAM is a 50 year old female who presented on 03/09/2016 to [facility]'s ED with complaint of chest pain, abdominal pain and right foot pain. Patient complained of worsening right foot pain. She has history of chronic PAD and has been noncompliant with medical management and has also continued to smoke. She had CTA of the chest, abdomen and pelvis. Which showed chronic changes of her known PAD. She Physical Exam Vital Signs: Temp Pulse Resp BP Pulse Ox 98.5 F 81 17 141/82 H 96 03/11/16 11:43 03/11/16 11:43 03/11/16 11:43 03/11/16 11:27 03/11/16 11:43 Intake & Output 03/10/16 03/11/16 03/12/16 06:59 06:59 06:59 Intake Total 185 1661 322 Balance 185 1661 322 Weight 61.5 kg Results Laboratory Results: 03/10/16 05:08 03/09/16 03/10/16 22:50 05:08 Troponin I 0.016 0.013 Impressions: Chest X-Ray 03/09/16 13:30 IMPRESSION: NO SIGNIFICANT RADIOGRAPHIC FINDING IN THE CHEST. Abdomen/Pelvis CT 03/09/16 15:38 IMPRESSION: Largely occluded right common external iliac artery with some flow evident in the distal common iliac. High-grade stenosis left common iliac. Chest/Abdomen CTA 03/09/16 15:38 IMPRESSION: No evidence of pulmonary emboli. Transvaginal US 03/09/16 17:37 IMPRESSION: MILD TO MODERATE FREE FLUID IN THE POSTERIOR CUL-DE-SAC. ETIOLOGY AND SIGNIFICANCE NOT APPARENT. UNABLE TO VISUALIZE THE OVARIES. NO OTHER SIGNIFICANT FINDINGS.
== END 2016-03-11 14:04 | disposition home or self-care (01) ==
LOC: ER 12:34 → EH 22:01 → UNDOADMOB 22:08 → EH 22:08 → 3S 23:58
DX: R07.9 Chest pain, unspecified (principal); I16.0 Hypertensive urgency; I10 Essential (primary) hypertension; I73.9 Peripheral vascular disease, unspecified; Z91.14 Patient's other noncompliance with medication regimen; Z72.0 Tobacco use; M79.671 Pain in right foot; F10.20 Alcohol dependence, uncomplicated; Z86.73 Personal history of transient ischemic attack (TIA), and cerebral infarction without residual deficits; M06.9 Rheumatoid arthritis, unspecified; F41.8 Other specified anxiety disorders
CPT/HCPCS: 93005 ×2; 96376; 99291; 99292; 96361; 96375; 96365; 36415 ×2; 87040; 82553; 87210; 82550; 83690; 83735; 84703; 85025 ×2; 85610; 85730; 80053; 81001; 84484 ×2; 80307; 87491; 87591; 80061; 71010; 76830; 93976; 71275; 74177; 93010; G0378 ×3; J3490 ×3; J1650 ×2; J1170; J2405; J7030; J0696

== ENCOUNTER 2016-03-13 09:43 | Emergency (ER) | payer SELFPAY ==
--- NOTE | 2016-03-13 11:06 | ER Document Report ---
ED Extremity Problem, Lower - General Mode of Arrival: Ambulatory Information source: Patient TRAVEL OUTSIDE OF THE [place] IN LAST 30 DAYS: No - HPI Patient complains to provider of: Pain Location: Leg Associated symptoms: Other - See above <DANNIE EASTON - Last Filed: 03/13/16 11:29> <PADMAJA SALAS - Last Filed: 03/13/16 13:06> - General Chief Complaint: Leg Pain Stated Complaint: LEG PAIN Notes: Patient is a 50 year old female, with a past medical history including HTN, RA, and peripheral vascular disease, who presents to the emergency department complaining of right leg pain. Patient was admitted to this facility on 03/09 for abdominal pain and discharged on 03/11, patient was found to have a blockage of her right iliac artery but there was still flow to her right distal iliac, she was sent home with no anti platelet drugs and told to follow up with a vascular surgeon. Patient reports that her leg pain worsened last night and is mostly located on the outside of her leg and around her right knee, patient denies any strenuous activity. Patient reports that she had vascular surgery performed, likely an aortofemoral bypass based on the patients recount, on by Dr. Florez. (DANNIE EASTON) - Related Data Allergies/Adverse Reactions: NSAIDS (Non-Steroidal Anti-Inflamma [Nsaids] Allergy (Intermediate, Verified 04/24 09:52) Hives aspirin [Aspirin] Allergy (Unknown, Verified 03/13/16 09:52) Past Medical History - General Information source: Patient - Social History Smoking Status: Former Smoker - 1 week Chew tobacco use (# tins/day): No Frequency of alcohol use: None Drug Abuse: None Family History: Reviewed & Not Pertinent Patient has suicidal ideation: No Patient has homicidal ideation: No - Past Medical History Cardiac Medical History: Reports: Hx Hypertension, Hx Peripheral Vascular Disease Musculoskeltal Medical History: Reports Hx Arthritis - RA Psychiatric Medical History: Reports: Hx Depression Past Surgical History: Reports: Hx Cardiac Catheterization, Hx Cardiac Surgery, Hx Vascular Surgery - Left lower extremity bypass. - Immunizations Hx Diphtheria, Pertussis, Tetanus Vaccination: Yes - 2006 <DANNIE EASTON - Last Filed: 03/13/16 11:29> Review of Systems - Review of Systems Constitutional: No symptoms reported EENT: No symptoms reported Cardiovascular: No symptoms reported Respiratory: No symptoms reported Gastrointestinal: No symptoms reported Genitourinary: No symptoms reported Female Genitourinary: No symptoms reported Musculoskeletal: See HPI, Other - right leg pain Skin: No symptoms reported Hematologic/Lymphatic: No symptoms reported Neurological/Psychological: No symptoms reported -: Yes All other systems reviewed and negative <DANNIE EASTON - Last Filed: 03/13/16 11:29> Physical Exam - Vital signs Interpretation: Normal - General General appearance: Appears well, Alert - HEENT Head: Normocephalic, Atraumatic - Respiratory Respiratory status: No respiratory distress Chest status: Nontender Breath sounds: Normal Chest palpation: Normal - Cardiovascular Rhythm: Regular Heart sounds: Normal auscultation Murmur: No - Extremities General upper extremity: Normal inspection, Normal ROM, Normal strength General lower extremity: Other - No tenderness of right lower leg or right knee. Delayed capilary refill on right toes. Skin temperature normal in right leg and right knee. - Neurological Neuro grossly intact: Yes Cognition: Normal Orientation: AAOx4 [place] Coma Scale Eye Opening: Spontaneous [place] Coma Scale Verbal: Oriented [place] Coma Scale Motor: Obeys Commands [place] Coma Scale Total: 15 Speech: Normal - Psychological Associated symptoms: Normal affect, Normal mood - Skin Skin Temperature: Warm Skin Moisture: Dry Skin Color: Normal <DANNIE EASTON - Last Filed: 03/13/16 11:29> Course - Laboratory Result Diagrams: 03/13/16 12:47 03/13/16 12:47 - Diagnostic Test Radiology reviewed: Reports reviewed - Arterial Doppler shows critical ischemic flow to the right foot. There is monophasic inflow noted. The right femoral artery shows proximal occlusion with distal reconstitution, the right anterior tibial artery is occluded this to leave so there is no flow through the dorsalis pedis. The peroneal and posterior tibial arteries show only critical flow. - Consults Dr. Payton Time consulted: 12:55 Consulted provider: other - Will accept at [facility] as ER to ER transfer. <PADMAJA SALAS - Last Filed: 03/13/16 13:06> - Vital Signs Vital signs: Temp Pulse Resp BP Pulse Ox 97.6 F 85 16 158/89 H 100 03/13/16 09:52 03/13/16 09:52 03/13/16 09:52 03/13/16 09:52 03/13/16 09:52 (DANNIE EASTON) (PADMAJA SALAS) - Laboratory Laboratory results interpreted by me: 03/13/16 12:47 Hgb 11.1 L Hct 33.4 L Critical Care Note - Critical Care Note Total time excluding time spent on procedures (mins): 30 <PADMAJA SALAS - Last Filed: 03/13/16 13:06> Discharge <DANNIE EASTON - Last Filed: 03/13/16 11:29> <PADMAJA SALAS - Last Filed: 03/13/16 13:06> - Discharge Clinical Impression: Ischemic foot Condition: Stable Disposition: [facility] Scribe Attestation: 03/13/16 13:06 I personally performed the services described in the documentation, reviewed and edited the documentation which was dictated to the scribe in my presence, and it accurately records my words and actions. (PADMAJA SALAS) Scribe Documentation - Scribe Written by Wenceslao:: wenceslao Winters, 03/13/16, 1128 acting as scribe for :: Wilber <DANNIE EASTON - Last Filed: 03/13/16 11:29>
[2016-03-13] MEDS ORDERED: HEPARIN SOD (PORCINE) 1,000 UNIT/ML 10 ML VIAL IV PRN (12:20)
[2016-03-13] MEDS ORDERED: HEPARIN SOD (PORCINE) 1,000 UNIT/ML 10 ML VIAL IV ONE (12:20)
[2016-03-13] MEDS ORDERED: HEPARIN SODIUM,PORCINE/D5W 250 ML IV PRN (12:20)
[2016-03-13 13:03] LABS: ABSOLUTE EOSINOPHILS # (AUTO) 0.1 10^3/uL (0.0-0.6); ABSOLUTE LYMPHOCYTES (AUTO) 1.2 10^3/uL (0.5-4.7); ABSOLUTE MONOCYTES (AUTO) 0.6 10^3/uL (0.1-1.4); ABSOLUTE NEUT (AUTO) 5.7 10^3/uL (1.7-8.2); BASOPHILS % (AUTO) 0.5 % (0-2); EOSINOPHILS % (AUTO) 1.3 % (0-6); HEMATOCRIT 33.4 % (36.0-47.0); HEMOGLOBIN 11.1 g/dL (12.0-15.5); HGB HCT DIFFERENCE -0.1; LYMPHOCYTES % (AUTO) 15.4 % (13-45); MEAN CORPUSCULAR HEMOGLOBIN 29.6 pg (27.0-33.4); MEAN CORPUSCULAR HGB CONC 33.3 g/dL (32.0-36.0); MEAN CORPUSCULAR VOLUME 89 fl (80-97); MONOCYTES % (AUTO) 8.1 % (3-13); RED BLOOD COUNT 3.76 10^6/uL (3.72-5.28); RED CELL DISTRIBUTION WIDTH 13.2 % (11.5-14.0); SEGMENTED NEUTROPHILS % (AUTO) 74.7 % (42-78); WHITE BLOOD COUNT 7.6 10^3/uL (4.0-10.5)
[2016-03-13 13:07] LABS: APPEARANCE,URINE SLIGHTLY-CLOUDY; BILIRUBIN,URINE NEGATIVE (NEGATIVE); GLUCOSE, URINE NEGATIVE (NEGATIVE); KETONES,URINE NEGATIVE (NEGATIVE); LEUKOCYTE ESTERASE,URINE SMALL (NEGATIVE); NITRITE,URINE NEGATIVE (NEGATIVE); PROTEIN,URINE NEGATIVE (NEGATIVE); URINE SPECIFIC GRAVITY 1.015; UROBILINOGEN,URINE NEGATIVE mg/dL (<2.0)
[2016-03-13 13:10] LABS: PROTHROMBIN TIME 12.5 SEC (11.4-15.4)
[2016-03-13 13:11] LABS: PARTIAL THROMBOPLASTIN TIME 32.9 SEC (23.5-35.8)
[2016-03-13 13:33] LABS: ALANINE AMINOTRANSFERASE 26 U/L (9-52); ALBUMIN 4.1 g/dL (3.5-5.0); ALKALINE PHOSPHATASE 99 U/L (38-126); ANION GAP 12 (5-19); ASPARTATE AMINO TRANSFERASE 18 U/L (14-36); BILIRUBIN,TOTAL 0.3 mg/dL (0.2-1.3); BLOOD UREA NITROGEN 19 mg/dL (7-20); CALCIUM 9.7 mg/dL (8.4-10.2); CARBON DIOXIDE 33 mmol/L (22-30); CHLORIDE 98 mmol/L (98-107); CREATININE RESULT 0.76 mg/dL (0.52-1.25); GLUCOSE 98 mg/dL (75-110); POTASSIUM 3.8 mmol/L (3.6-5.0); SODIUM 142.5 mmol/L (137-145); TOTAL PROTEIN 7.6 g/dL (6.3-8.2)
[2016-03-13 13:55] VITALS: BP 138/83
--- NOTE | 2016-03-13 16:07 | XCELERA REPORT ---
[address] [address] Lower Extremity Arterial Evaluation Name: DIMAS GRAHAM Age: 50 yrs Gender: Female : 1965 Patient Status: Emergency Patient Location: ER Study Date: 03/13/2016 11:37 AM Procedure: A color flow and duplex scan of the lower extremity arteries was performed on the right with velocity and waveform analysis. Reason For Study: RIGHT LEG-INCREASED PAIN-OCCLUDER COMMON ILIAC Ordering Physician: PADMAJA SALAS Performed By: Carlitos Nava Measurements and Calculations Right Left CLERICAL SPECIALIST PSV 45.4 cm/sec Prox PFA PSV -13.6 cm/sec Prox SFA PSV 26.0 cm/sec Prox Pop A PSV 19.9 cm/sec Mid GINETTE PSV 13.4 cm/sec Dist PORTFOLIO MANAGER PSV 6.1 cm/sec Dist Michael A PSV 5.7 cm/sec Moe Pedis PSV 93.0 cm/sec Right Side Arterial Evaluation Abnormal velocity, monophasic flow present, from the Common Femoral artery down to the infrageniculate vessels. narrowed lumen in the CLERICAL SPECIALIST on color flow. Trickle flow in the Tibials. The ankle-brachial index was not done. 50-99% stenosis is noted at the inflow. With severe sequential disease. Left Side Arterial Evaluation Normal triphasic waveform in the Dorsalis Pedis artery. Critical Findings Discussed with Dr Salas at about 1300. Interpretation Summary Severe hemodynamically significant lesions in the right lower extremity only, on duplex imaging, at rest. Potentially limb threatening ischemia on the right. Probably normal flow on the left. : PADMAJA SALAS > Yassine Tomlinson
== END 2016-03-13 13:50 | disposition short-term general hospital (02) ==
LOC: ER 09:43
DX: I99.8 Other disorder of circulatory system (principal); M79.604 Pain in right leg; R10.9 Unspecified abdominal pain; I10 Essential (primary) hypertension; M06.9 Rheumatoid arthritis, unspecified; Z87.891 Personal history of nicotine dependence
CPT/HCPCS: 36415; 83605; 85025; 85610; 85730; 80053; 81001; 93926 ×2; J1644 ×2

== ENCOUNTER → 2018-03-31 | Outpatient (CLI) | payer MEDICAID ==
--- NOTE | 2018-03-31 12:53 | RADIOLOGY REPORT (SQ) ---
EXAM DESCRIPTION: [employer] COMPLETED DATE/TIME: 03/31/2018 8:58 am REASON FOR STUDY: AORTIC ANEURYSM OF UNSPECIFIED SITE, WITHOUT RUPTURE (I71.9) I71.9 AORTIC ANEURYS M OF UNSPECIFIED SITE, WITHOUT RUPTURE COMPARISON: None. TECHNIQUE: Static and dynamic grayscale images acquired of the aorta and stored on PACs. Selected co marj Doppler and spectral images recorded. LIMITATIONS: None. FINDINGS: AORTIC CALIBER MAXIMAL PROXIMAL: 2.4 cm. MID: 1.8 cm. DISTAL: 1.6 cm. ILIAC DIAMETER RIGHT: 1.2 cm. LEFT: 1.2 cm. OTHER: No other significant finding. IMPRESSION: NO ABDOMINAL AORTIC ANEURYSM. COMMENT: Aortic aneurysm imaging followup: Negative, no followup necessary. *Based upon the Society for Vascular Surgery Guidelines: J Vasc Surg. 2009 Oct;50(4 Suppl):S2-49 *For aortas of maximum diameter of 2.6-2.9 cm meeting the criteria for AAA (?1.5 x proximal normal se gment) TECHNICAL DOCUMENTATION: JOB ID: [id number] [employer]- All Rights Reserved Reading location - IP/workstation name: [email or web address]
== END ==
LOC: RAD 07:32
PROVIDERS: ATTEND Internal Medicine Rheumatology
DX: I70.0 Atherosclerosis of aorta (principal); I77.811 Abdominal aortic ectasia
CPT/HCPCS: 76775

== ENCOUNTER 2019-11-16 12:39 | Emergency (ER) | payer OTHER, MEDICAID ==
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
[2019-11-16] MEDS ORDERED: NORMAL SALINE 1000 ML 1,000 ML IV ONE (13:20)
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
[2019-11-16 13:52] LABS: ABSOLUTE LYMPHOCYTES (AUTO) 1.8 10^3/uL (0.5-4.7); ABSOLUTE MONOCYTES (AUTO) 0.5 10^3/uL (0.1-1.4); ABSOLUTE NEUT (AUTO) 8.2 10^3/uL (1.7-8.2); BASOPHILS % (AUTO) 0.3 % (0-2); EOSINOPHILS % (AUTO) 0.3 % (0-6); HEMATOCRIT 38.3 % (36.0-47.0); HEMOGLOBIN 12.8 g/dL (12.0-15.5); LYMPHOCYTES % (AUTO) 16.7 % (13-45); MEAN CORPUSCULAR HGB CONC 33.3 g/dL (32.0-36.0); MEAN CORPUSCULAR VOLUME 90 fl (80-97); MONOCYTES % (AUTO) 4.5 % (3-13); PLATELET COUNT 320 10^3/uL (150-450); RED BLOOD COUNT 4.25 10^6/uL (3.72-5.28); RED CELL DISTRIBUTION WIDTH 14.5 % (11.5-14.0); SEGMENTED NEUTROPHILS % (AUTO) 78.2 % (42-78); TOTAL CELLS COUNTED % (AUTO) 100 %; WHITE BLOOD COUNT 10.5 10^3/uL (4.0-10.5)
[2019-11-16 13:56] LABS: APPEARANCE,URINE CLEAR; BILIRUBIN,URINE NEGATIVE (NEGATIVE); COLOR,URINE YELLOW; GLUCOSE, URINE NEGATIVE (NEGATIVE); KETONES,URINE NEGATIVE (NEGATIVE); LEUKOCYTE ESTERASE,URINE NEGATIVE (NEGATIVE); NITRITE,URINE NEGATIVE (NEGATIVE); PROTEIN,URINE 30 mg/dL (NEGATIVE); URINE SPECIFIC GRAVITY 1.017; UROBILINOGEN,URINE NEGATIVE mg/dL (<2.0)
[2019-11-16 13:58] LABS: INTERNATIONAL RATION (INR) 0.99; PARTIAL THROMBOPLASTIN TIME 28.2 SEC (23.5-35.8); PROTHROMBIN TIME 13.3 SEC (11.4-15.4)
[2019-11-16 14:09] LABS: URINE AMPHETAMINES SCREEN NEGATIVE; URINE BARBITURATES SCREEN NEGATIVE; URINE BENZODIAZEPINES SCREEN NEGATIVE; URINE COCAINE SCREEN NEGATIVE; URINE MARIJUANA (THC) SCREEN NEGATIVE; URINE METHADONE SCREEN NEGATIVE; URINE PHENCYCLIDINE SCREEN NEGATIVE
[2019-11-16] MEDS ORDERED: ONDANSETRON HCL INJ/PF 4 MG/2 ML SDV IV ONE (14:09)
[2019-11-16] MEDS ORDERED: MORPHINE SULFATE 10 MG/ML INJ IV ONE (14:09)
[2019-11-16 14:13] LABS: ALBUMIN 4.2 g/dL (3.5-5.0); ALKALINE PHOSPHATASE 129 U/L (38-126); ANION GAP 8 (5-19); ASPARTATE AMINO TRANSFERASE 33 U/L (14-36); BILIRUBIN,DIRECT 0.3 mg/dL (0.0-0.4); BILIRUBIN,TOTAL 0.4 mg/dL (0.2-1.3); BLOOD UREA NITROGEN 18 mg/dL (7-20); CALCIUM 9.6 mg/dL (8.4-10.2); CARBON DIOXIDE 27 mmol/L (22-30); CHLORIDE 106 mmol/L (98-107); GLUCOSE 93 mg/dL (75-110); POTASSIUM 4.4 mmol/L (3.6-5.0); TOTAL PROTEIN 7.9 g/dL (6.3-8.2)
[2019-11-16 14:15] LABS: ALCOHOL < 10 mg/dL (NONE DETECTED)
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
[2019-11-16] MEDS ORDERED: CLONIDINE HCL 0.1 MG TABLET PO ONE (16:10)
[2019-11-16 16:52] VITALS: BP 179/96
--- NOTE | 2019-11-16 19:20 | EKG REPORT ---
SEVERITY:- ABNORMAL ECG - SINUS RHYTHM LEFT ATRIAL ABNORMALITY ANTERIOR INFARCT, AGE INDETERMINATE : Confirmed by: Ayala Cooper MD 16-Nov-2019 19:20:27
== END 2019-11-16 16:53 | disposition home or self-care (01) ==
LOC: ER 12:39
DX: S20.219A Contusion of unspecified front wall of thorax, initial encounter (principal); S30.1XXA Contusion of abdominal wall, initial encounter; R07.9 Chest pain, unspecified; M79.631 Pain in right forearm; V49.40XA Driver injured in collision with unspecified motor vehicles in traffic accident, initial encounter; Y92.411 Interstate highway as the place of occurrence of the external cause; F17.200 Nicotine dependence, unspecified, uncomplicated; I10 Essential (primary) hypertension; I49.3 Ventricular premature depolarization; Z79.01 Long term (current) use of anticoagulants; Z79.899 Other long term (current) drug therapy; Z88.8 Allergy status to other drugs, medicaments and biological substances; S06.0X9A Concussion with loss of consciousness of unspecified duration, initial encounter
CPT/HCPCS: 93005; 99285; 96361; 96374; 96375; 36415; 80307 ×2; 85025; 85610; 85730; 80053; 81001; 84484; 71045; 73090; 70450; 71260; 72125; 74177; 93010; J2270; J2405; J7030